=== PATIENT | male | born 1965 | race Caucasian/White ===

== ENCOUNTER 2016-07-29 13:38 | Emergency (ER) | payer OTHER ==
--- NOTE | 2016-07-29 14:03 | Emergency Department Record ---
History of Present Illness - General Chief complaint: Cold Stated complaint: DIZZY,TIGHTNESS IN CHEST Time Seen by Provider: 07/29/16 14:03 Source: Patient Mode of Arrival: Ambulatory Limitations: No limitations - History of Present Illness Initial comments: The patient has been ill for a week with nasal congestion, a mild ST and cough and now for one day has had some dizziness, chest tightness and mild SOB when coughing. There is no pain in the chest but just the mild tightness which feels like he is unable to take a deep breath. He denies any hx of similar issues and no hx of any CP with exertion. MD complaint: Other Onset/Timin -: Week(s) Consistency: Constant Improves with: None Worsens with: None Associated Symptoms: Cough, Rhinorrhea, Sore throat - Related Data Home Medications Medication Instructions Recorded Confirmed Last Taken Atorvastatin Calcium 20 mg PO QHS 07/29/16 07/29/16 07/28/16 Tamsulosin HCl [Flomax] 0.4 mg PO QHS 07/29/16 07/29/16 07/28/16 Previous Rx's Medication Instructions Recorded Albuterol Sulfate [Proair Hfa] 2 puff IH QID PRN #1 inhaler 07/29/16 Doxycycline Monohydrate [Mondoxyne 100 mg PO BID #14 capsule 07/29/16 Nl] Allergies Allergy/AdvReac Type Severity Reaction Status Date / Time Penicillins Allergy Severe ANAPHYLAXIS Verified 07/29/16 13:43 Carbapenems Allergy Unknown PT UNSURE Verified 07/29/16 13:43 OF REACTION Cephalosporins Allergy Unknown PT UNSURE Verified 07/29/16 13:43 OF REACTION Travel Screening - Travel/Exposure Within Last 30 Days Have you traveled within the last 30 days?: No - Travel/Exposure Within Last Year Have you traveled outside the [place] in the last year?: No - Additonal Travel Details Have you been exposed to anyone with a communicable illness?: No - Travel Symptoms Symptom Screening: None Review of Systems Constitutional: Denies: Chills, Fever Eyes: Denies: Eye discharge ENT: Reports: Congestion Respiratory: Reports: Cough, Dyspnea Cardiovascular: Denies: Arrhythmia, Chest pain Past Medical History - SOCIAL HISTORY Smoking Status: Heavy tobacco smoker (>10/day) Alcohol Use: Heavy Alcohol Use Comment: most days - 2 - 3 mixed drinks Drug Use: None - RESPIRATORY Hx Respiratory Disorders: No - CARDIOVASCULAR Hx Cardio Disorders: Yes Comment:: high cholesterol - NEURO Hx Neuro Disorders: No - GI Hx GI Disorders: No - Hx Genitourinary Disorders: Yes Hx Prostate Problems: Yes - ENDOCRINE Hx Endocrine Disorders: No - MUSCULOSKELETAL Hx Musculoskeletal Disorders: No - PSYCH Hx Psych Problems: No - HEMATOLOGY/ONCOLOGY Hx Hematology/Oncology Disorders: No Family Medical History Any Significant Family History?: No Physical Exam - General General Appearance: Alert, Oriented x3, Cooperative, No acute distress - Head Head exam: Atraumatic, Normocephalic, Normal inspection - Eye Eye exam: Normal appearance, PERRL - ENT Throat exam: Tonsillar erythema. negative: Normal inspection, Tonsillomegaly, Tonsillar exudate - Neck Neck exam: Normal inspection, Full ROM. negative: Tenderness - Respiratory Respiratory exam: Decreased breath sounds (mildly at the bases.), Wheezes (At the bases.). negative: Normal lung sounds bilaterally, Accessory muscle use, Prolonged expiratory, Respiratory distress - Cardiovascular Cardiovascular Exam: Regular rate, Normal rhythm, Normal heart sounds - GI/Abdominal GI/Abdominal exam: Soft, Normal bowel sounds. negative: Tenderness - Extremities Extremities exam: Normal inspection, Full ROM, Normal capillary refill. negative: Tenderness - Neurological Neurological exam: Alert, Normal gait, Oriented X3. negative: Abnormal gait, Motor sensory deficit Course Vital Signs 07/29/16 13:43 Temperature 98.8 F Pulse Rate 68 Respiratory 16 Rate Blood Pressure 134/81 Pulse Ox 97 - Reevaluation(s) Reevaluation #1: The patient feels a lot better at this time. His tightness has pretty much resolved with the Duoneb tx. On exam his lungs are clear and he is able to breath much deeper than prior to the treatment. He feels a lot better and would like to go home. 07/29/16 15:11 Reevaluation #2: The patient is doing very well at this time. His test results are all WNL with a normal EKG. I did discuss the chest tightness and MICHELE and do believe they are related to his recent URI due to the fact his symptoms did resolve with the Duoneb. Tx and now he is able to take a deep breath. I stongly doubt an issue with clots in his lungs due to the fact he is Wells Criteria Low prob for PE and PERC neg. I did recommend to stay in the hospital overnight due to the fact the patient has cardiac risk factors of heavy smoking and high cholesterol but the patient is refusing. I did explain to him that his EKG, xray and lab tests are all WNL but the safest thing would be to stay overnight to monitor his heart. The patient is refusing and states he will return if any of his symptoms worsen. 07/29/16 15:24 Medical Decision Making - Data Complexity MDM Data: Labs Ordered and/or Reviewed, X-Ray Ordered and/or Reviewed, EKG Ordered and/or Reviewed - Lab Data Result diagrams: 07/29/16 14:10 07/29/16 14:10 - EKG Data -: EKG Interpreted by Me EKG: No Acute Changes, Normal EKG - Radiology Data Radiology results: Report reviewed (CXR: Neg.) Disposition Disposition: Discharge Clinical Impression: Upper respiratory infection, acute Instructions: Cold Symptoms (ED) Additional Instructions: Please take the Doxycycline and Albuterol as directed. Off work today and tomorrow. Please see your PCP later this week if not better. Return to the ER for any increased cough, fever, or any CP, SOB, or trouble breathing. Prescriptions: Doxycycline Monohydrate [Mondoxyne Nl] 100 mg PO BID #14 capsule Albuterol Sulfate [Proair Hfa] 2 puff IH QID PRN #1 inhaler PRN Reason: Cough And Difficulty Breathing Forms: Patient Portal Access Time of Disposition: 15:15
[2016-07-29] MEDS ORDERED: ASPIRIN 325 MG TABLET PO ONE (14:07)
[2016-07-29] MEDS ORDERED: IPRATROPIUM/ALBUTEROL (0.5MG/3MG) NEB INH ONE (14:10)
[2016-07-29 14:28] LABS: BASO % 0.2 % (0-6); EOS % 1.5 % (0-6); GRAN % 71.8 % (47-80); HEMATOCRIT 44.4 % (42.0-52.0); HEMOGLOBIN 15.2 gm/dl (14.0-18.0); LYMPH % 20.5 % (16-45); MEAN CELL VOLUME 94.3 fl (81-97); MEAN CORPUSCULAR HEMOGLOBIN 32.3 pg (27-33); MEAN CORPUSCULAR HGB CONC 34.2 g/dl (32-36); MEAN PLATELET VOLUME 10.2 fl (7.4-10.4); PLATELET COUNT 263 K/uL (130-400); RED BLOOD COUNT 4.71 M/uL (4.40-5.70); RED CELL DISTRIBUTION WIDTH 13.5 % (11.5-14.5); WHITE BLOOD COUNT W/O DIFF 14.9 K/uL (4.2-12.2)
[2016-07-29 14:38] LABS: ANION GAP 15.2 (7-16); BLOOD UREA NITROGEN 12 mg/dL (9-20); CARBON DIOXIDE 24.8 mmol/L (22-30); CREATINE PHOSPHOKINASE 181 U/L (55-170); CREATININE 0.7 mg/dL (0.66-1.25); EST GLOMERULAR FILTRATION RATE > 60 ml/min; GLUCOSE,RANDOM 83 mg/dL (70-110); INR 0.95; PARTIAL THROMBOPLASTIN TIME 31.6 SECONDS (24.5-39.1); PROTHROMBIN TIME (PATIENT) 10.7 SECONDS (9.5-12.1)
[2016-07-29 14:52] LABS: TROPONIN I < 0.012 ng/mL (0.00-0.034)
[2016-07-29] MEDS ORDERED: DOXYCYCLINE HYCLATE 100 MG CAPSULE PO ONE (15:09)
--- NOTE | 2016-08-01 13:25 | RADIOLOGY REPORT ---
EXAM: CHEST, TWO VIEWS HISTORY: CHEST TIGHTNESS FOR A DAY, COUGH FOR A WEEK. TECHNIQUE: PA and lateral views of the chest were obtained. Comparison: None. FINDINGS: The heart size is normal. The lungs appear expanded with no acute infiltrate seen. No pleural effusion or pneumothorax evident. Minor spurring in the spine. Mild spurring at the acromioclavicular joints also. IMPRESSION: THE CHEST APPEARS ESSENTIALLY NEGATIVE WITH MINOR SPURRING IN THE SPINE AND ACROMIOCLAVICULAR JOINTS. NO ACUTE INFILTRATE EVIDENT. [facility]BER: [id number] [facility]
== END 2016-07-29 15:32 | disposition home or self-care (01) ==
LOC: ER 13:38
DX: J06.9 Acute upper respiratory infection, unspecified (principal); R42 Dizziness and giddiness; R07.89 Other chest pain; R05 Cough; J02.9 Acute pharyngitis, unspecified; R06.02 Shortness of breath; F17.210 Nicotine dependence, cigarettes, uncomplicated
CPT/HCPCS: 71020; 80048; 82550; 82553; 84484; 85025; 85610; 85730; 93005; 93010; 94640; 99284

== ENCOUNTER 2017-08-27 06:37 | Emergency (ER) | payer OTHER ==
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
[2017-08-27] MEDS ORDERED: HYDROCODONE/APAP 7.5/325MG TABLET PO ONE (09:06)
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
== END 2017-08-27 09:46 | disposition home or self-care (01) ==
LOC: ER 06:37
DX: S32.029A Unspecified fracture of second lumbar vertebra, initial encounter for closed fracture (principal); S32.039A Unspecified fracture of third lumbar vertebra, initial encounter for closed fracture; S32.049A Unspecified fracture of fourth lumbar vertebra, initial encounter for closed fracture; M25.551 Pain in right hip; F17.210 Nicotine dependence, cigarettes, uncomplicated; V49.49XA Driver injured in collision with other motor vehicles in traffic accident, initial encounter
CPT/HCPCS: 72100; 72131; 99283; 99284

== ENCOUNTER 2018-01-02 07:09 | Day surgery (SDC) | payer OTHER ==
[2018-01-02] MEDS ORDERED: MIDAZOLAM HCL 2MG/2ML VIAL IV ONE (07:10)
[2018-01-02] MEDS ORDERED: PROPOFOL 10 MG/ML VIAL IV ONE (07:10)
[2018-01-02] MEDS ORDERED: LIDOCAINE 2% MDV (20MG/ML) 20ML VIAL IV ONE (07:10)
--- NOTE | 2018-01-05 13:30 | Operative Note ---
DATE OF SURGERY: 01/02/2018 SURGEON: Raffaele Branch MD OPERATION: COLONOSCOPY. INDICATIONS: This is a 52-year-old male with average risk for colorectal cancer who presented for screening colonoscopy. POSTOPERATIVE DIAGNOSES: 1. Left-sided colonic diverticulosis. 2. Five 5-8 mm sessile polyps in the ascending colon that were removed by cold snare. 3. Two 2-3 mm sessile polyps in the transverse colon that were removed by cold biopsy forceps and an adjacent 6 mm sessile polyp that was removed by cold snare. 4. A 3 mm sessile polyp in the sigmoid colon that was removed by cold biopsy forceps. 5. Three 5-6 mm sessile polyps in the rectum that were removed by cold snare. 6. Suboptimal bowel preparation. ANESTHESIA: Sedation is per Anesthesia. Pulse oximetry was monitored throughout the procedure to maintain O2 saturation of 90% or greater. Supplemental oxygen was administered via nasal cannula. Cardiac and vital signs were monitored throughout the duration of the procedure, and they were stable. The procedure of colonoscopy and risks and alternatives of the procedure, including the risk of bleeding and perforation, among others, were explained to the patient who voiced understanding and agreed to have the procedure done. Physical examination was performed, and the patient was found stable for sedation. PROCEDURE: The patient was placed in the left lateral position. Sedation was initiated. A digital rectal exam was performed and showed some mild external hemorrhoids with no palpable rectal masses. An Olympus PCF-180AL colonoscope was then inserted into the rectum under direct visualization. It was advanced to the cecum without difficulty. The ileocecal valve and appendiceal orifice were identified and photographed. The colonic mucosa was carefully examined upon introduction of the colonoscope. There were scattered diverticula noted in the sigmoid and descending colon. The bowel preparation was suboptimal but enough to exclude any significant lesions. The colonoscope was then withdrawn while carefully examining the colonic mucosal surfaces. In the ascending colon were five 6-8 mm sessile polyps that were removed by cold snare. In the proximal transverse colon were two 2-3 mm sessile polyps that were noted and were removed by cold biopsy forceps with an adjacent 6 mm sessile polyp that was removed by cold snare. The rest of the cecum, ascending colon, transverse colon, and descending colon appeared normal. In the sigmoid colon was a 3 mm sessile polyp that was noted and was removed by cold biopsy forceps. The rest of the sigmoid colon appeared normal. In the rectum, upon retroflexion, three 5-6 mm sessile polyps were noted and they were removed by cold snare. There were no other lesions noted. The colonoscope was then withdrawn and the procedure was terminated. The patient tolerated the procedure well without any immediate complications. He remained with stable vital signs and was transferred to the recovery room. RECOMMENDATIONS: 1. The patient should be on a high-fiber diet. 2. The patient is to have a repeat colonoscopy for surveillance in 3 years. Thank you for allowing me to participate in the care of your patient. CC: VICKY MURILLO MD, FACP [facility]
== END 2018-01-02 09:40 | disposition home or self-care (01) ==
LOC: HOP 07:09
PROVIDERS: ATTEND Internal Medicine Gastroenterology
DX: Z12.11 Encounter for screening for malignant neoplasm of colon (principal); D12.2 Benign neoplasm of ascending colon; D12.3 Benign neoplasm of transverse colon; K63.5 Polyp of colon; K57.30 Diverticulosis of large intestine without perforation or abscess without bleeding; I10 Essential (primary) hypertension; E78.00 Pure hypercholesterolemia, unspecified